=== PATIENT | female | born 2000 | race Caucasian/White ===

== ENCOUNTER 2021-11-08 10:38 | Emergency (ER) | payer OTHER, SELFPAY ==
[2021-11-08 10:46] VITALS: BP 119/67; PULSE 64; RESP 16; TEMP 36.3; O2SAT 100
--- NOTE | 2021-11-08 11:03 | ED.ABDPAIN ---
HPI - Abdominal Pain General Chief Complaint: Abdominal Pain Stated Complaint: R SIDED ABD PAIN Time Seen by Provider: 11/08/21 10:55 History of Present Illness HPI narrative: 21 year old female accompanied by mother presents to express care with complaint of abdominal cramping starting at 0600 and then sharp abdominal pain in right lower quadrant since 1000, rates her pain 8/10, Patient states that last menses was one week ago, is on control. Patient reports some nausea but denies any diarrhea, states normal bowel movement yesterday. Patient reports that she has not eaten or drank anything since last night. Patient reports that she took Tums early this morning but did not help. MD elicited complaint: abdominal pain Onset (ago): hour(s) (0600) Pain Consistency: constant Location: RLQ Pain scale (0-10): 8 Quality: sharp Exacerbating factors: movement Associated symptoms: nausea Related Data Allergies Allergy/AdvReac Type Severity Reaction Status Date / Time amoxicillin Allergy Unknown HIVES Verified 11/08/21 12:11 clavulanic acid Allergy Unknown HIVES Verified 11/08/21 12:11 Review of Systems Review of Systems: CONSTITUTIONAL: Denies fever, chills, or sweats. EYES: Denies visual changes, redness, or discharge. ENT: Denies rhinorrhea, congestion, sore throat, or otalgia. CARDIOVASCULAR: Denies chest pain, palpitations, or edema. RESPIRATORY: Denies cough or dyspnea. GASTROINTESTINAL: Positive right lower abdomen pain, positive nausea, no vomiting, or diarrhea. GENITOURINARY: Denies dysuria or hematuria. SKIN: Denies rash or itching. MUSCULOSKELETAL: Denies back pain, joint pain, or myalgia. NEUROLOGIC: Denies headache, numbness, or weakness. PSYCHIATRIC: Denies anxiety or depression. All systems reviewed & are unremarkable except as noted in HPI and below PMFSH Past Medical History Medical History (Updated 11/08/21 @ 12:57 by Gianni Barker DO) Patient denies significant medical history Surgical History Surgical History H/O knee surgery 04/13/2022 Social History Social History Smoking status: Never smoker Alcohol intake: current Alcohol use details: socially Substance use: never Substance use type: does not use Gender identity (if verbalized by the patient): Female Sexual Orientation (if Verbalized by the Patient): Straight or Heterosexual Comments At time of signature, agree with nursing past medical, surgical, social and family history. There is no relevant family history pertinent to the presenting complaint Exam Narrative: GENERAL: Well-appearing, well-nourished, and in acute distress. HEAD: Normocephalic, atraumatic. EYES: PERRLA and EOMI. ENT: Nares clear, no rhinorrhea or epistaxis. Mucous membranes moist. TMs normal with good light reflex NECK: Supple. No lymphadenopathy CHEST: Clear to auscultation. No respiratory distress.SAO2 100% on room air HEART: Regular rate and rhythm. No murmur heard. Normal peripheral pulses. ABDOMEN: Soft, tender on palpation right lower quadrant positive for McBurney point tenderness, nondistended, normal active bowel sound, no rebound noted. EXTREMITIES: Normal range of motion. No edema. SKIN: Warm, dry, no rash. NEURO: No focal deficits. Alert and oriented x3. Course Course Level of Care: Express Care Visit Vital Signs Vital signs: Vital Signs Temperature 36.3 C L 11/08/21 10:46 Pulse Rate 64 11/08/21 10:46 Respiratory Rate 16 11/08/21 10:46 Blood Pressure 119/67 11/08/21 10:46 Pulse Oximetry 100 11/08/21 10:46 Temperature 36.3 C L 11/08/21 10:46 Pulse Rate 64 11/08/21 10:46 Respiratory Rate 16 11/08/21 10:46 Blood Pressure 119/67 11/08/21 10:46 Pulse Oximetry 100 11/08/21 10:46 MDM - Abdominal Pain Differential Diagnosis Differential diagnosis: Likely abdominal pain, acute appendicitis, c
== END 2021-11-08 11:19 | disposition short-term general hospital (02) ==
PROVIDERS: Emergency Provider Registered Nurse; PCP Internal Medicine
DX: R10.31 Right lower quadrant pain (principal)
CPT/HCPCS: 81003; 99212; G0463

== ENCOUNTER 2021-11-08 11:32 | Day surgery (SDC) | payer OTHER, SELFPAY ==
[2021-11-08] VITALS (9 sets, daily range): BP systolic 108–138; BP diastolic 62–78; PULSE 51–100; RESP 16–19; TEMP 36.2–36.7; O2SAT 99–100
--- NOTE | ~2021-11-08 | CT_ITS ---
EXAMINATION: CT abdomen pelvis wo con DATE: 11/08/2021 12:26 INDICATION: Right lower quadrant abdominal pain. TECHNIQUE: Computed tomography (CT) of the abdomen and pelvis was performed without intravenous contr ast. Automated exposure control and iterative reconstruction technique were employed. The dose-length product was 298.34 mGy-cm. COMPARISON: None. FINDINGS: The visualized portions of the lung bases are clear without pneumonia or pleural effusion. The heart size is normal. No pericardial effusion. The liver, gallbladder, spleen, pancreas, adrenal glands, and kidneys are normal. There is no urolithiasis. There is physiologic fluid in the pelvis. T here are appendicoliths in the appendix, which measures 9 mm in diameter. There is fat stranding arou nd the appendix. These findings are consistent with acute appendicitis. There are no pathologically e nlarged lymph nodes. The bones are unremarkable. IMPRESSION: 1. Acute appendicitis. Reviewed, dictated and finalized at location A. IMPRESSION: 1. Acute appendicitis.
[2021-11-08 12:07] LABS: Basophils Percent Auto 0.3 % (0.2-1.2); Eosinophils Percent Auto 0.3 % (0-4.4); Hematocrit 38.3 % (37.0-47.0); Hemoglobin 12.3 g/dL (12.0-15.0); Immature Granulocyte Absolute 0.05 K/mm3 (0.00-0.031); Immature Granulocyte Percent A 0.4 % (0-0.5); Lymphocytes Absolute Auto 1.43 K/mm3 (0.9-3.2); Lymphocytes Percent Auto 12.5 % (18.3-44.2); Mean Corpuscular HGB Conc 32.1 g/dl (32-36); Mean Corpuscular Hemoglobin 28.3 pg (26-34); Mean Corpuscular Volume 88.2 fl (80-100); Mean Platelet Volume 10.2 fl (7.4-10.4); Monocytes Absolute Auto 0.5 K/mm3 (0.1-0.6); Monocytes Percent Auto 4.5 % (2.6-8.5); Neutrophils Absolute Auto 9.4 K/mm3 (1.3-6.7); Platelet Count Result 210 k/mm3 (150-375); Red Blood Count 4.34 M/mm3 (4.2-5.4); Red Cell Distribution Width 12.9 % (11.5-14.5); White Blood Count 11.5 K/mm3 (4.5-10.0)
[2021-11-08 12:13] LABS: Add Urine Microscopic? YES; Appearance Urine Clear (Clear); Bilirubin Urine 1+ (Negative); Blood Urine Negative (Negative); Color Urine Yellow (Yellow); Glucose Urine UA Negative (Negative); Ketones Urine Trace mg/dL (Negative); Leukocyte Esterase Ur Negative LEU/UL (Negative); Nitrate Urine Negative (Negative); Protein Urine Trace mg/dL (Negative); Specific Grav Ur 1.025 (1.001-1.035); Urobilinogen Urine 0.2 mg/dL (<2.0); pH Urine 5.5 (5.0-9.0)
[2021-11-08 12:21] LABS: Bacteria Urine Trace /hpf; Mucus Urine Heavy /lpf; RBC Urine 0-2 /hpf (0-2); Squamous Epithelial Cell Urine Occasional /hpf (Few)
--- NOTE | 2021-11-08 12:23 | ED.ABDPAIN ---
HPI - Abdominal Pain General Chief Complaint: Abdominal Pain Stated Complaint: right lower abd pain Time Seen by Provider: 11/08/21 12:05 History of Present Illness HPI narrative: Patient presents emergency department from home for abdominal pain. Patient states symptoms began this morning pain is located right lower quadrant does not radiate described as sharp and stabbing. Patient gone to the urgent care and was referred to the emergency department for further evaluation. Patient states the pain does not radiate denies any fevers or chills nausea vomiting diarrhea or any other symptoms. States she is not taking medication for the pain at home Related Data Allergies Allergy/AdvReac Type Severity Reaction Status Date / Time amoxicillin Allergy Unknown HIVES Verified 11/08/21 12:11 clavulanic acid Allergy Unknown HIVES Verified 11/08/21 12:11 Review of Systems Review of Systems: Gen.: Denies fevers or chills ENT: Denies congestion Respiratory: Denies shortness of breath or cough CV: Denies chest pain or palpitations GI: See HPI Musculoskeletal: Denies back pain or muscle pain Neuro: Denies numbness, tingling, weakness or focal weakness Skin: Denies rash Except as documented, all other systems reviewed and negative [facility] Past Medical History Medical History (Updated 11/08/21 @ 12:57 by Gianni Barker DO) Patient denies significant medical history Surgical History Surgical History H/O knee surgery 04/13/2022 Social History Social History Smoking status: Never smoker Alcohol intake: current Alcohol use details: socially Substance use: never Substance use type: does not use Gender identity (if verbalized by the patient): Female Sexual Orientation (if Verbalized by the Patient): Straight or Heterosexual Exam Narrative: APPEARANCE: No acute distress, nontoxic, resting in bed HEENT: Normocephalic, atraumatic, OMM RESPIRATORY: No respiratory distress, clear to auscultation bilaterally with no rhonchi wheezing or rales CARDIOVASCULAR: RRR s murmur ABDOMINAL: Soft nondistended tender palpation right lower quadrant no tenderness right upper quadrant, left upper quadrant left lower quadrant no rebound or guarding MUSCULOSKELETAl: Moves all extremities. No clubbing, cyanosis or edema. NEURO: Awake and alert. Following commands, speech normal, no focal deficits SKIN:: Warm, dry. Normal Color PSYCHIATRIC: Normal affect/mood Course Course Emergency Course: Discussed with Dr. Schwartz plan to take patient to the OR at this time discussed the patient's allergies he request that she receive 1 g Ancef at this time Discussed with patient and family results of workup and diagnosis. Discussed need for admission. Patient and family understand and agree to current treatment plan Vital Signs Vital signs: Vital Signs Temperature 98.1 F 11/08/21 11:46 Pulse Rate 61 11/08/21 11:46 Respiratory Rate 16 11/08/21 11:46 Blood Pressure 115/65 11/08/21 11:46 Pulse Oximetry 100 11/08/21 11:46 Oxygen Delivery Room Air 11/08/21 11:46 Temperature 98.1 F 11/08/21 11:46 Pulse Rate 61 11/08/21 11:46 Respiratory Rate 16 11/08/21 11:46 Blood Pressure 115/65 11/08/21 11:46 Pulse Oximetry 100 11/08/21 11:46 Oxygen Delivery Room Air 11/08/21 11:46 MDM - Abdominal Pain Lab Data Result diagrams: 11/08/21 11:54 11/08/21 11:54 Labs: Lab Results 11/08/21 11/08/21 11/08/21 Range/Units 11:54 11:54 12:03 WBC 11.5 H (4.5-10.0) K/mm3 RBC 4.34 (4.2-5.4) M/mm3 Hgb 12.3 (12.0-15.0) g/dL Hct 38.3 (37.0-47.0) % MCV 88.2 (80-100) fl MCH 28.3 (26-34) pg MCHC 32.1 (32-36) g/dl RDW 12.9 (11.5-14.5) % Plt Count 210 (150-375) k/mm3 MPV 10.2 (7.4-10.4) fl Immature Gran % (Auto) 0.4 (0-0.5) % Neut % (A
[2021-11-08 12:26] LABS: Alanine Aminotransferase 12 U/L (6-35); Albumin Level 4.6 g/dL (3.5-5.1); Alkaline Phosphatase 48 U/L (38-126); Anion Gap 7 mmol/L (8-16); Aspartate Amino Transferase 26 U/L (14-36); Bilirubin,Total 0.5 mg/dL (0.2-1.3); Blood Urea Nitrogen 14 mg/dL (7-17); Calcium 9.2 mg/dL (8.4-10.2); Carbon Dioxide 26 mmol/L (22-30); Chloride 103 mmol/L (98-107); Estimated CRCL calculation 84 ml/min; Estimated Glomerular Filt Rate > 60; Glucose 95 mg/dL (65-110); Lipase 192 U/L (23-300); Potassium 4.1 mmol/L (3.4-5.0); Sodium 136 mmol/L (137-145)
[2021-11-08] MEDS: SODIUM CHLORIDE 0.9% IV 1,000 ML 999 ML IV CONT (12:30)
[2021-11-08] MEDS: KETOROLAC 30 MG/ML VIAL (*BKC) IV PUSH (12:30)
[2021-11-08] MEDS: ceFAZolin SODIUM 1 GM VIAL IV PUSH ×2 (13:11→15:41)
[2021-11-08] MEDS: LACTATED RINGERS 1,000 ML 30 ML IV CONT ×2 (14:54→16:35)
--- NOTE | 2021-11-08 15:13 | PM.IMHP ---
H&P: HPI History of Present Illness Date/Time: 11/08/21 15:13 Chief Complaint: RLQ abdominal pain Narrative: This is a 21-year-old female who presented to the ER with complaints of RLQ abdominal pain that started this morning. She reports noticing pain in the RLQ around 9-10 am this morning. The pain was sharp and constant, and aggravated by movement. She initially presented to an urgent care who recommended she come to the ER for evaluation. CT scan of the abdomen and pelvis in the ER showed acute uncomplicated appendicitis. Labs showed a WBC count of 11,500. Our service was contacted by the ED physician for surgical evaluation. She is now seen in pre-op. She has received Ancef 1 gram IV in the ER and is currently on IV fluids. She is still having RLQ abdominal pain, but other specific complaints. No previous abdominal surgeries. Denies ever having this pain in the past. Review of Systems Review of Systems: All systems reviewed & are unremarkable except as noted in HPI and below Constitutional: Constitutional: Reports as per HPI, Denies chills, Denies fatigue and Denies fever(s) Eyes: Eyes: Reports no additional eye complaints ENT: Reports system reviewed and no additional complaints, except as documented and Reports Normal hearing present Cardiovascular: Cardiovascular: Reports no additional cardiovascular complaints, Denies chest pain and Denies leg edema Respiratory: Respiratory: Reports no additional respiratory complaints, Denies cough and Denies dyspnea Gastrointestinal: Gastrointestinal: Reports as per HPI, Reports no additional gastrointestinal complaints, Reports abdominal pain, Denies change in bowel habits, Denies change in stool character, Denies constipation, Denies diarrhea, Denies nausea and Denies vomiting Genitourinary: Genitourinary: Reports no additional female genitourinary complaints, Denies hematuria and Denies dysuria Musculoskeletal: Musculoskeletal: Reports no additional musculoskeletal complaints Comments: History of knee surgery following a soccer injury Integumentary/Breasts: Skin/Breast: Reports system reviewed and no additional complaints, except as docu Neurologic: Reports system reviewed and no additional complaints, except as documented, Denies dizziness, Denies focal weakness, Denies numbness and Denies tingling PMFSH Past Medical History Medical History Patient denies significant medical history Surgical History Surgical History H/O knee surgery 04/13/2022 Family History Family History Other No pertinent family history Social History Social History Smoking status: Never smoker Alcohol intake: current Alcohol use details: socially Substance use: never Substance use type: does not use Gender identity (if verbalized by the patient): Female Sexual Orientation (if Verbalized by the Patient): Straight or Heterosexual Meds Home Medications and Allergies Home Medications Medication Instructions Recorded Confirmed Type drospirenone 3 mg-ethinyl 1 tablet PO DAILY #84 tabs 10/24/21 11/08/21 Rx estradiol 0.02 mg tablet Allergies Allergy/AdvReac Type Severity Reaction Status Date / Time amoxicillin Allergy Unknown HIVES Verified 11/08/21 12:11 clavulanic acid Allergy Unknown HIVES Verified 11/08/21 12:11 Vital Signs Vital Signs - 24 hr 11/08/21 11:46 11/08/21 13:19 11/08/21 14:51 Temperature 98.1 F 97.8 F Pulse Rate 61 61 55 L Respiratory Rate 16 19 16 Blood Pressure 115/65 119/78 115/66 Pulse Oximetry 100 100 100 Oxygen Delivery Room Air Room Air Exam Const: General: comfortable, no acute distress and awake Nutritional Appearance: average body habitus Orientation/consciousness: patient oriented x3 HENMT:
--- NOTE | 2021-11-08 15:31 | WPDHPUPDATE1 ---
History and Physical Update Update Date/Time: 11/08/21 15:31 History and Physical has been reviewed, including an updated exam of the patient. There are NO changes in the patient's condition. Risks, benefits, and alternatives have been discussed and questions answered. Patient agrees to proceed with procedure.
--- NOTE | 2021-11-08 15:34 | WPDANESEPPF ---
Anes - Initial Pre Proc Eval Procedure: Operation Date: 11/08/21 14:00 Proposed Procedures p Laparoscopic Appendectomy - Jay Schwartz MD Date/Time: 11/08/21 15:34 Surgeon: Jay Schwartz MD Pre Op Diagnosis: right lower abd pain Patient Data Age: 21 Gender: F Height: 1.63 m Weight: 63.5 kg Last Vital Signs Temp 36.6 C 11/08/21 14:51 Pulse 55 L 11/08/21 14:51 Resp 16 11/08/21 14:51 BP 115/66 11/08/21 14:51 Pulse Ox 100 11/08/21 14:51 O2 Del Method Room Air 11/08/21 14:51 Allergies Allergy/AdvReac Type Severity Reaction Status Date / Time amoxicillin Allergy Unknown HIVES Verified 11/08/21 12:11 clavulanic acid Allergy Unknown HIVES Verified 11/08/21 12:11 Home Medications Medication Instructions Recorded Confirmed Type drospirenone 3 mg-ethinyl 1 tablet PO DAILY #84 tabs 10/24/21 11/08/21 Rx estradiol 0.02 mg tablet Laboratory Tests 11/08/21 11/08/21 11/08/21 11:54 11:54 12:03 WBC 11.5 K/mm3 H K/mm3 (4.5-10.0) RBC 4.34 M/mm3 M/mm3 (4.2-5.4) Hgb 12.3 g/dL g/dL (12.0-15.0) Hct 38.3 % % (37.0-47.0) MCV 88.2 fl fl (80-100) MCH 28.3 pg pg (26-34) MCHC 32.1 g/dl g/dl (32-36) RDW 12.9 % % (11.5-14.5) Plt Count 210 k/mm3 k/mm3 (150-375) MPV 10.2 fl fl (7.4-10.4) Immature Gran % (Auto) 0.4 % % (0-0.5) Neut % (Auto) 82.0 % H % (45.5-73.1) Lymph % (Auto) 12.5 % L % (18.3-44.2) Nance % (Auto) 4.5 % % (2.6-8.5) Eos % (Auto) 0.3 % % (0-4.4) Baso % (Auto) 0.3 % % (0.2-1.2) Lymph # (Auto) 1.43 K/mm3 K/mm3 (0.9-3.2) Nance # (Auto) 0.5 K/mm3 K/mm3 (0.1-0.6) Eos # (Auto) 0.0 K/mm3 K/mm3 (0-0.3) Baso # (Auto) 0.0 K/mm3 K/mm3 (0.0-0.1) Abs Immat Gran (auto) 0.05 K/mm3 H K/mm3 (0.00-0.031) Absolute Neuts (auto) 9.4 K/mm3 H K/mm3 (1.3-6.7) Absolute Nucleated RBC 0.0 K/mm3 K/mm3 (0.0-0.012) Nucleated RBC % 0.0 % % (0.0-0.2) Sodium 136 mmol/L L mmol/L (137-145) Potassium 4.1 mmol/L mmol/L (3.4-5.0) Chloride 103 mmol/L mmol/L (98-107) Carbon Dioxide 26 mmol/L mmol/L (22-30) Anion Gap 7 mmol/L L mmol/L (8-16) BUN 14 mg/dL mg/dL (7-17) Creatinine 0.80 mg/dL mg/dL (0.7-1.0) Estim Creat Clear Calc 84 ml/min ml/min Estimated GFR > 60 (59 - ) Glucose 95 mg/dL mg/dL (65-110) Calcium 9.2 mg/dL mg/dL (8.4-10.2) Total Bilirubin 0.5 mg/dL mg/dL (0.2-1.3) AST 26 U/L U/L (14-36) ALT 12 U/L U/L (6-35) Alkaline Phosphatase 48 U/L U/L (38-126) Total Protein 7.0 g/dL g/dL (6.3-8.2) Albumin 4.6 g/dL g/dL (3.5-5.1) Lipase 192 U/L U/L (23-300) Urine Color Yellow (Yellow) Urine Appearance Clear (Clear) Urine pH 5.5 (5.0-9.0) Ur Specific [place] 1.025 (1.001-1.035) Urine Protein Trace mg/dL mg/dL (Negative) Urine Glucose (UA) Negative mg/dL mg/dL (Negative) Urine Ketones Trace mg/dL mg/dL (Negative) Ur Blood (Man) Negative (Negative) Urine Nitrate Negative (Negative) Urine Bilirubin 1+ H (Negative) Urine Urobilinogen 0.2 mg/dL mg/dL (<2.0) Leukocyte Esterase Rfl Negative ERVIN/UL ERVIN/UL (Negative) Urine RBC 0-2 /hpf /hpf (0-2) Urine WBC 4-6 /hpf H /hpf Ur Squamous Epith Cells Occasional /hpf /hpf (Few) Urine Bacteria Trace /hpf /hpf Urine Mucus Heavy /lpf H /lpf Patient hx anesthesia problems: none Family hx anesthesia problems: none Results Review: All pre-operative results and documents have been reviewed as
--- NOTE | 2021-11-08 15:45 | P.OP_ITS ---
Procedure Note - Detailed Date of Procedure 11/08/21 Pre-op Diagnosis Acute appendicitis Post-op Diagnosis Same Procedure Performed Laparoscopic appendectomy Surgeon Jay Schwartz MD Director Transition Otoniel NUNES Anesthesia General and Local (1% lidocaine with epinephrine) Indications Patient is a 21-year-old healthy young woman who started having right lower quadrant abdominal pain earlier this morning. She came to the emergency room where evaluation showed an elevated white count and tenderness of the right lower quadrant. CT scan showed acute appendicitis. She is taken to surgery now for laparoscopic appendectomy. Findings Acute non perforated appendicitis Description of Procedure Patient was taken to surgery and induced into general anesthesia. The abdomen is prepped and draped. Trocars were placed in the usual fashion using 1% lidocaine with epinephrine and applied Medical optical trocars. 5 mm ports were placed in the left upper quadrant and left mid abdomen, a 10 11 port was placed in the left lower quadrant. The patient was placed in Trendelenburg with the right-side elevated. The appendix was found fairly easily. It appeared to have acute appendicitis. It was mobilized from inflammatory adhesions. Dissection was carried out in the mesoappendix. The appendiceal artery was found and was thoroughly cauterized. It was divided. We continued dissection of the mesoappendix and then skeletonized the base of the appendix. The appendix was then ligated with a Vicryl endoloop at its base. We amputated the appendix just above the ligature and cauterized the mucosa of the appendiceal stump. The appendix was placed immediately in an Endo-Catch bag. It was retrieved through the 10 11 left lower quadrant trocar site. We replaced the trocar and reviewed the appendiceal stump in the areas of dissection. All looked good with no evidence of bleeding or other problems. We then evacuated CO2 and removed the trocar sleeves. Skin wounds were closed with subcuticular 4-0 Monocryl skin suture. The wounds were dressed with Exofin surgical adhesive. Patient was awakened and taken to recovery in good condition. Sponge and needle counts were correct x2. Estimated Blood Loss -5 Drains No Packing No Pathology Yes (Appendix) Complications No immediate complications Condition Stable Disposition PACU [facility] Billing Surgery - Charge Forward: Surgery Billing (Laparoscopic appendectomy)
--- NOTE | 2021-11-08 15:49 | PM.DS ---
DS: Admitting Diagnosis Discharge Date 11/08/2021 Admitting Diagnosis Acute appendicitis DS: Discharge Diagnosis Discharge Diagnosis (1) Acute appendicitis: Code(s): K35.80 - Unspecified acute appendicitis Status: Acute DS: Summary Hospital Course Hospital Course: Patient presented to urgent care and eventually the emergency room with right lower quadrant abdominal pain. Evaluation showed acute appendicitis. After discussion, she was taken to surgery and underwent laparoscopic appendectomy on the same day, 11/08/2021. She did well after surgery and was discharged later that day. Status at Discharge Functional status at discharge: independent ambulation Overall status at discharge: patient is progressing back to baseline Time Spent with Patient Time attestation: Total time spent providing and/or coordinating discharge services: Time spent: Less than 30 minutes DS: Data Data Completed and Pending Labs on day of discharge: Labs from last 24 hours 11/08/21 11/08/21 11/08/21 12:03 11:54 11:54 WBC 11.5 H RBC 4.34 Hgb 12.3 Hct 38.3 MCV 88.2 MCH 28.3 MCHC 32.1 RDW 12.9 Plt Count 210 MPV 10.2 Immature Gran % (Auto) 0.4 Neut % (Auto) 82.0 H Lymph % (Auto) 12.5 L Emery % (Auto) 4.5 Eos % (Auto) 0.3 Baso % (Auto) 0.3 Lymph # (Auto) 1.43 Emery # (Auto) 0.5 Eos # (Auto) 0.0 Baso # (Auto) 0.0 Abs Immat Gran (auto) 0.05 H Absolute Neuts (auto) 9.4 H Absolute Nucleated RBC 0.0 Nucleated RBC % 0.0 Sodium 136 L Potassium 4.1 Chloride 103 Carbon Dioxide 26 Anion Gap 7 L BUN 14 Creatinine 0.80 Estim Creat Clear Calc 84 Estimated GFR > 60 Glucose 95 Calcium 9.2 Total Bilirubin 0.5 AST 26 ALT 12 Alkaline Phosphatase 48 Total Protein 7.0 Albumin 4.6 Lipase 192 Urine Color Yellow Urine Appearance Clear Urine pH 5.5 Ur Specific Bailey 1.025 Urine Protein Trace Urine Glucose (UA) Negative Urine Ketones Trace Ur Blood (Man) Negative Urine Nitrate Negative Urine Bilirubin 1+ H Urine Urobilinogen 0.2 Leukocyte Esterase Rfl Negative Urine RBC 0-2 Urine WBC 4-6 H Ur Squamous Epith Cells Occasional Urine Bacteria Trace Urine Mucus Heavy H Discharge Plan Discharge Patient Disposition: Home, Self-Care Discharge Instructions: 1. May shower the day after surgery over incisions. 2. Call office for: -Wound increasingly painful or bleeding -Vomiting -Fever of greater than 101 degrees 3. Expect some blood on dressing and old blood on skin. 4. If no bowel movement for three days, take 1 oz. (30 ml) Milk of Magnesia, if no results, take Fleets enema. 5. No heavy lifting > 15-20 pounds for 1 week. 6. No driving for 3 days or while taking narcotic pain medications. 7. Up walking 10-30 minutes three times per day. 8. Resume previous home medications. 9. Follow-up 8 days in office for follow up visit. 10. Oral pain medications prescription to be sent home with patient. 11. NUTRITION: Start out by drinking fluids and increase your diet as tolerated. If you experience nausea, try dry toast, crackers, and 7-UP. If nausea or vomiting persists, contact your surgeon?s office. Patient Instructions: Antibiotic Form Stand Alone Forms: General Discharge Instructions Follow-up/Referrals: Jay Schwartz MD [Physician] - 11/16/21 (Call for appointment and see Dr. Schwartz on 11/16/2021 for follow-up visit) Discharge Medications: New hydrocodone-acetaminophen 5-325 mg tablet 1 - 2 tablet PO Q6H PRN (Reason: pain) Qty: 7 0RF ketorolac 10 mg tablet 10 mg PO Q6H 4 Days Qty: 16 0RF Continued drospirenone-ethinyl estradiol 3-0.02 mg tablet 1 tablet PO DAILY Qty: 84 4RF
[2021-11-08] MEDS: LIDO 1%/EPINEPHRINE/PF 1:200,000 30 ML VIAL XX (16:16)
== END 2021-11-08 18:16 | disposition home or self-care (01) ==
LOC: ANHED 12:59 → ANHSURGERY 14:15
PROVIDERS: Emergency Provider Emergency Medicine; PCP Internal Medicine; Visit Provider Surgery
PROC: 0DTJ4ZZ Resection of Appendix, Percutaneous Endoscopic Approach (ICD-10-PCS; CPT 44970; principal; 2021-11-08 14:00)
DX: K35.30 Acute appendicitis with localized peritonitis, without perforation or gangrene (principal)
CPT/HCPCS: 44970; 36415; 74176; 80053; 81001; 81025; 83690; 85025; 88304; 96361; 96374; 96375; 99285; J0690; J1100; J1170; J1885; J2250; J2405; J2704; J2710; J3010; J7030; J7120

== ENCOUNTER → 2021-12-19 12:49 | Outpatient (CLI) | payer OTHER, SELFPAY ==
--- NOTE | ~2021-12-19 | US_ITS ---
EXAMINATION: US soft tissue LE RT DATE: 12/19/2021 13:14 INDICATION: Right thigh lump. TECHNIQUE: Multiple grayscale and Doppler ultrasound images of the right thigh were obtained. COMPARISON: None FINDINGS: In the anterior right thigh musculature, there is a 2.8 x 3.9 x 1.9 cm mass of heterogeneou s echogenicity that demonstrates areas of echotexture similar to muscle with architectural distortion . IMPRESSION: 1. 3.9 cm intramuscular mass in anterior right thigh, most likely a partial tear with hematoma (grade 2 muscle strain). Neoplasm is not excluded. Consider MRI without and with contrast. Reviewed, dictated and finalized at location A.
--- NOTE | ~2021-12-19 | US_ITS ---
EXAMINATION: US soft tissue LE DATE: 12/19/2021 13:14 INDICATION: Thigh lump. TECHNIQUE: Multiple grayscale and Doppler ultrasound images of the left thigh were obtained. COMPARISON: None FINDINGS: There is no abnormal mass in the left thigh. IMPRESSION: 1. No abnormal mass in the left thigh. Reviewed, dictated and finalized at location A.
--- NOTE | ~2021-12-19 | US_ITS ---
This report was recreated on 01/04/2022. Original report was signed by Bahman Smith M.D. on 12/19/2021 13:22 CDT EXAMINATION: US soft tissue LE LT DATE: 12/19/2021 13:14 INDICATION: Thigh lump. TECHNIQUE: Multiple grayscale and Doppler ultrasound images of the left thigh were obtained. COMPARISON: None FINDINGS: There is no abnormal mass in the left thigh. IMPRESSION: 1. No abnormal mass in the left thigh. Reviewed, dictated and finalized at location A. Dictated By: Bahman Smith MD 12/19/21 1321 Signed By: <Electronically signed by Bahman Smith MD in [place]> 12/19/21 1322 [facility]
--- NOTE | ~2021-12-19 | US_ITS ---
This report was recreated 01/04/2022. Original report was signed by Bahman Smith M.D. on 12/19/2021 13:21 CDT EXAMINATION: US soft tissue LE RT DATE: 12/19/2021 13:14 INDICATION: Right thigh lump. TECHNIQUE: Multiple grayscale and Doppler ultrasound images of the right thigh were obtained. COMPARISON: None FINDINGS: In the anterior right thigh musculature, there is a 2.8 x 3.9 x 1.9 cm mass of heterogeneous echogenicity that demonstrates areas of echotexture similar to muscle with architectural distortion. IMPRESSION: 1. 3.9 cm intramuscular mass in anterior right thigh, most likely a partial tear with hematoma (grade 2 muscle strain). Neoplasm is not excluded. Consider MRI without and with contrast. Reviewed, dictated and finalized at location A. Dictated By: Bahman Smith MD 12/19/21 1317 Signed By: <Electronically signed by Bahman Smith MD in [place]> 12/19/21 1321 [facility]
== END ==
DX: R22.41 Localized swelling, mass and lump, right lower limb (principal)
CPT/HCPCS: 76882